=== PATIENT | male | born 1965 | race Caucasian/White ===

== ENCOUNTER 2022-01-03 14:28 | Inpatient (IN) | payer OTHER ==
[2022-01-03] MEDS ORDERED: Acetaminophen 325 MG TAB PO PRN (17:45)
[2022-01-03] MEDS ORDERED: Ondansetron PF 4 MG/2 ML Vial IVP PRN (17:45)
[2022-01-03] MEDS ORDERED: Ondansetron ODT 4 MG TAB SL PRN (17:45)
[2022-01-03] MEDS ORDERED: Sodium Chloride 0.9% 1,000 ML IV SCH (17:45)
[2022-01-03 17:59] VITALS: BMI 23.3
[2022-01-03 18:00] LABS: SARS-CoV-2 NAA Rapid Test DETECTED (NotDetected)
[2022-01-03] MEDS ORDERED: HYDROcodone/Acetaminophen 5/325 mg Tablet PO PRN (19:07)
[2022-01-03] MEDS ORDERED: Furosemide 20 MG TAB PO PRN (19:07)
[2022-01-03] MEDS ORDERED: Albuterol 200 PUFF (6.7GM INHALER) INH PRN (19:30)
[2022-01-03] MEDS ORDERED: Heparin 5,000 UNITS/ML VIAL SC SCH (21:00)
[2022-01-03] MEDS: Cefepime 1 GM in Sodium Chloride 0.9% 100 ML IVPB SCH (21:43)
[2022-01-03] MEDS: Carvedilol 3.125 MG TAB PO SCH (21:43)
[2022-01-03] MEDS: Rosuvastatin 5 MG TAB PO SCH (21:43)
[2022-01-03] MEDS: Apixaban 5 MG TAB PO SCH (21:44)
[2022-01-03] MEDS: Famotidine 20 MG TAB PO SCH (21:45)
[2022-01-03] MEDS: HYDROcodone/Acetaminophen 5/325 mg Tablet PO PRN (23:07)
[2022-01-04] MEDS ORDERED: Morphine 4 MG/ML VIAL SLOW IVP SCH (01:30)
[2022-01-04] MEDS: HYDROcodone/Acetaminophen 5/325 mg Tablet PO PRN ×2 (05:19→09:04)
[2022-01-04 05:26] LABS: Hemoglobin 13.4 g/dL (14.0-18.0); Hypochromia SLIGHT = 6-15 cells (100X) (0-5/hpf); Lymphocytes 52 % (21-51); MDiff Complete? YES; Mean Corpuscular HGB CONC 33.4 g/dL (32.0-36.0); Mean Corpuscular Hemoglobin 29.4 pg (27.0-31.0); Mean Corpuscular Volume 87.8 fL (78.0-98.0); Mean Platelet Volume 7.1 fL (7.4-10.4); Monocytes 16 % (0-10); Neutrophil 26 % (42-75); Platelet Count 184 thou/uL (130-400); Platelet Morphology Comment Appears Adequate; RBC Distribution Width 13.3 % (11.5-14.5); Reactive Lymphocytes 6 % (0-10); Red Blood Cell (RBC) Count 4.56 mill/uL (4.70-6.10); White Blood Cell (WBC) Count 3.9 thou/uL (4.8-10.8)
[2022-01-04 05:28] LABS: ALT (SGPT) 54 U/L (8-55); AST (SGOT) 53 U/L (5-34); Albumin 3.5 g/dL (3.5-5.0); Alkaline Phosphatase 46 U/L (40-110); Anion Gap 13 mmol/L (10-20); BUN (Urea Nitrogen) 13 mg/dL (8.4-25.7); Bilirubin, Total 0.4 mg/dL (0.2-1.2); Calc. Creatinine Clearance 84 mL/min (70-130); Calcium 7.8 mg/dL (7.8-10.44); Carbon Dioxide 20 mmol/L (22-29); Chloride 105 mmol/L (98-107); Globulin 2.4 g/dL (2.4-3.5); Glucose 91 mg/dL (70-105); Potassium 3.8 mmol/L (3.5-5.1); Protein, Total 5.9 g/dL (6.0-8.3); Sodium 134 mmol/L (136-145)
[2022-01-04] MEDS: Famotidine 20 MG TAB PO SCH ×2 (09:02→21:14)
[2022-01-04] MEDS: Amiodarone 200 MG TAB PO SCH (09:02)
[2022-01-04] MEDS: Apixaban 5 MG TAB PO SCH ×2 (09:02→21:14)
[2022-01-04] MEDS: Cefepime 1 GM in Sodium Chloride 0.9% 100 ML IVPB SCH (09:03)
[2022-01-04] MEDS: Varenicline Tartrate 0.5 MG TAB PO SCH (09:31)
[2022-01-04] MEDS: Carvedilol 3.125 MG TAB PO SCH (09:31)
[2022-01-04] MEDS ORDERED: diphenhydrAMINE 50 MG/ML VIAL IVP PRN (14:00)
[2022-01-04] MEDS: Prochlorperazine 10 MG/2 ML VIAL IVP SCH ×2 (14:29→21:14)
[2022-01-04] MEDS: Acetaminophen 500 MG TAB PO PRN (19:04)
[2022-01-04] MEDS: Carvedilol 6.25 MG TAB PO SCH (21:14)
[2022-01-04] MEDS: Rosuvastatin 5 MG TAB PO SCH (21:15)
[2022-01-04 23:56] LABS: Hemoglobin 13.2 g/dL (14.0-18.0); Mean Corpuscular HGB CONC 33.8 g/dL (32.0-36.0); Mean Corpuscular Hemoglobin 29.3 pg (27.0-31.0); Mean Corpuscular Volume 86.8 fL (78.0-98.0); Mean Platelet Volume 6.8 fL (7.4-10.4); Platelet Count 171 thou/uL (130-400); RBC Distribution Width 13.2 % (11.5-14.5); Red Blood Cell (RBC) Count 4.49 mill/uL (4.70-6.10); White Blood Cell (WBC) Count 4.6 thou/uL (4.8-10.8)
[2022-01-05 00:12] LABS: Lactic Acid 0.8 mmol/L (0.5-2.2)
[2022-01-05 00:17] LABS: ALT (SGPT) 50 U/L (8-55); AST (SGOT) 39 U/L (5-34); Albumin 3.3 g/dL (3.5-5.0); Alkaline Phosphatase 42 U/L (40-110); Anion Gap 11 mmol/L (10-20); BUN (Urea Nitrogen) 17 mg/dL (8.4-25.7); Bilirubin, Total 0.7 mg/dL (0.2-1.2); Calc. Creatinine Clearance 84 mL/min (70-130); Carbon Dioxide 20 mmol/L (22-29); Chloride 100 mmol/L (98-107); Globulin 2.3 g/dL (2.4-3.5); Glucose 106 mg/dL (70-105); Potassium 3.2 mmol/L (3.5-5.1); Protein, Total 5.6 g/dL (6.0-8.3); Sodium 128 mmol/L (136-145)
[2022-01-05 00:26] LABS: Band 3 % (5-11); Hypochromia SLIGHT = 6-15 cells (100X) (0-5/hpf); Lymphocytes 39 % (21-51); MDiff Complete? YES; Monocytes 22 % (0-10); Neutrophil 26 % (42-75); Platelet Morphology Comment Appears Adequate; Reactive Lymphocytes 10 % (0-10)
[2022-01-05] MEDS ORDERED: Potassium Chloride 20 MEQ TAB PO SCH (01:15)
[2022-01-05] MEDS ORDERED: Electrolyte Replacement Protocol 1 EACH FS SCH (01:15)
[2022-01-05] MEDS: Prochlorperazine 10 MG/2 ML VIAL IVP SCH ×3 (02:02→14:47)
[2022-01-05] MEDS: Acetaminophen 500 MG TAB PO PRN ×2 (04:55→17:47)
[2022-01-05] MEDS: Apixaban 5 MG TAB PO SCH ×2 (09:53→21:09)
[2022-01-05] MEDS: Famotidine 20 MG TAB PO SCH ×2 (09:53→21:10)
[2022-01-05] MEDS: Carvedilol 6.25 MG TAB PO SCH (09:53)
[2022-01-05] MEDS: Amiodarone 200 MG TAB PO SCH ×2 (09:53→21:09)
[2022-01-05] MEDS: Varenicline Tartrate 0.5 MG TAB PO SCH (09:54)
[2022-01-05] MEDS ORDERED: Amiodarone 200 MG TAB PO SCH (10:45)
[2022-01-05 17:25] LABS: Anion Gap 14 mmol/L (10-20); BUN (Urea Nitrogen) 13 mg/dL (8.4-25.7); Calc. Creatinine Clearance 107 mL/min (70-130); Carbon Dioxide 16 mmol/L (22-29); Chloride 109 mmol/L (98-107); Glucose 100 mg/dL (70-105); Potassium 4.2 mmol/L (3.5-5.1); Sodium 135 mmol/L (136-145)
[2022-01-05] MEDS ORDERED: Digoxin 0.5 MG/2 ML AMP SLOW IVP SCH (17:30)
[2022-01-05] MEDS ORDERED: Sodium Chloride 0.9% 500 ML IV SCH (17:30)
[2022-01-05] MEDS: Rosuvastatin 5 MG TAB PO SCH (21:10)
[2022-01-06] MEDS: Acetaminophen 500 MG TAB PO PRN ×2 (04:32→23:54)
[2022-01-06 05:04] LABS: Anion Gap 13 mmol/L (10-20); BUN (Urea Nitrogen) 10 mg/dL (8.4-25.7); CRP (Inflammatory) 7.33 mg/dL (= or < 0.5); Calc. Creatinine Clearance 110 mL/min (70-130); Calcium 8.2 mg/dL (7.8-10.44); Carbon Dioxide 20 mmol/L (22-29); Chloride 108 mmol/L (98-107); Glucose 95 mg/dL (70-105); Potassium 3.9 mmol/L (3.5-5.1); Sodium 137 mmol/L (136-145)
[2022-01-06] MEDS: Amiodarone 200 MG TAB PO SCH ×2 (09:45→21:02)
[2022-01-06] MEDS: Famotidine 20 MG TAB PO SCH ×2 (09:46→21:02)
[2022-01-06] MEDS: Varenicline Tartrate 0.5 MG TAB PO SCH (09:46)
[2022-01-06] MEDS: Apixaban 5 MG TAB PO SCH ×2 (09:46→21:02)
[2022-01-06] MEDS ORDERED: Nitroglycerin 2% Ointment 1 INCH/1 GM Packet ONE (14:22)
[2022-01-06] MEDS: Rosuvastatin 5 MG TAB PO SCH (21:02)
[2022-01-07] MEDS: Acetaminophen 500 MG TAB PO PRN (09:51)
[2022-01-07] MEDS: Amiodarone 200 MG TAB PO SCH (09:51)
[2022-01-07] MEDS: Famotidine 20 MG TAB PO SCH (09:52)
[2022-01-07] MEDS: Apixaban 5 MG TAB PO SCH (09:52)
[2022-01-07] MEDS: Varenicline Tartrate 0.5 MG TAB PO SCH (10:08)
[2022-01-07 17:06] VITALS: BP 153/77; TEMP 98.8
== END 2022-01-07 15:52 | disposition home or self-care (01) | DRG 178 ==
LOC: ERS 14:28 → 2NO 15:17
PROVIDERS: ADMIT Internal Medicine; ATTEND Internal Medicine
PROC: 8E0ZXY6 Isolation (ICD-10-PCS; principal; 2022-01-03)
PROC: 4B02XTZ Measurement of Cardiac Defibrillator, External Approach (ICD-10-PCS; 2022-01-06)
DX: U07.1 COVID-19 (principal); I50.22 Chronic systolic (congestive) heart failure; J44.9 Chronic obstructive pulmonary disease, unspecified; F43.10 Post-traumatic stress disorder, unspecified; F17.210 Nicotine dependence, cigarettes, uncomplicated; F12.10 Cannabis abuse, uncomplicated; I48.0 Paroxysmal atrial fibrillation; I25.5 Ischemic cardiomyopathy; R04.0 Epistaxis; E87.6 Hypokalemia; I95.89 Other hypotension; I69.398 Other sequelae of cerebral infarction; Z88.8 Allergy status to other drugs, medicaments and biological substances; Z79.899 Other long term (current) drug therapy; Z79.01 Long term (current) use of anticoagulants; Z95.810 Presence of automatic (implantable) cardiac defibrillator; Z82.49 Family history of ischemic heart disease and other diseases of the circulatory system; Z86.74 Personal history of sudden cardiac arrest
CPT/HCPCS: 36415; 36416; 70450; 80048; 80053; 83605; 83880; 85025; 86140; 93005; 93306; J0692; J0780; J1160; J2270; J3490; J7030; U0002